=== PATIENT | female | born 1945 | race Caucasian/White ===

== ENCOUNTER 2019-08-13 06:35 | Inpatient (IN) | payer MEDICARE, BC ==
--- NOTE | 2019-08-12 14:49 | HPE ---
DATE OF ANTICIPATED ADMISSION: 08/13/2019 ATTENDING PHYSICIAN: Dr. Patrick Rm CHIEF COMPLAINT: Right hip pain and stiffness. HISTORY: The patient is a pleasant 74-year-old female with progressively worsening right hip pain and stiffness. She has failed to improve with conservative measures. She continues to have symptoms with weightbearing activities and activities of daily living. She has consented for an elective right total hip arthroplasty with Dr. Rm for her continued symptoms. Medical optimization was completed with Deandra Fernández, Nurse Practitioner and was reviewed at visit today. CURRENT MEDICATIONS: - vitamin D3 2000 units daily - isosorbide 30 mg daily - diltiazem extended release 180 mg daily - hydrochlorothiazide 12.5 mg daily - aspirin 81 mg daily - Tylenol 500 mg twice daily - omeprazole 20 mg daily - Lipitor 20 mg daily - Claritin 10 mg daily - halobetasol cream once daily - Nitrostat 0.4 mg tablets as needed - Aricept 5 mg daily ALLERGIES TO MEDICATIONS: METHYLPREDNISOLONE, CHLORINE PHOSPHATE, SIMVASTATIN, FELDENE and EYE APPOINTMENT, unsure which type. CHRONIC MEDICAL CONDITIONS: Gastroesophageal reflux. Hypertension. Osteoarthritis. Fatty liver. History of left lower extremity deep venous thrombosis (DVT). Coronary artery disease, status post stent placement. Hyperlipidemia. Stage II diastolic function. Chronic left-sided congestive heart failure. Colon polyps. History [place]O. Dementia. PAST SURGICAL HISTORY: Tonsillectomy. section. Carpal tunnel release. Cholecystectomy. Lipoma excision from behind her knee. Hysterectomy with bilateral salpingo-oophorectomy (BSO). Right total knee arthroplasty. Cardiac catheterization. Cardiac stent. Needle biopsy of the breast. Parotid cyst removal. PTCA with stent. Colonoscopy. FAMILY HISTORY: Noncontributory. SOCIAL HISTORY: The patient is a former smoker and quit in the . Rarely uses alcohol. The patient does live at home on her own but will have help status post surgery if needed. REVIEW OF SYSTEMS: The patient denies fevers, chills, nausea, vomiting, or diarrhea. She denies chest pain, shortness of breath, lightheadedness, dizziness, or headaches. She denies any recent upper respiratory or urinary tract infection symptoms. She does continue to have right hip pain with weightbearing activities and activities of daily living. PHYSICAL EXAMINATION: General: Well-nourished, well-developed female in no apparent distress. She is alert, oriented, and cooperative. Mood and affect are appropriate. Vital signs: Height 62 inches, weight 174.2 pounds, temperature 98 degrees, blood pressure 138/90, heart rate 78, respirations 13. Heart: Regular rate and rhythm. Lungs: Clear to auscultation bilaterally. Abdomen: Bowel sounds are present. Abdomen is soft and nontender to palpation. Musculoskeletal: Right hip exhibits no gross abnormalities. Skin is intact. She does have tenderness to palpation along the groin. She does have limited motion of the hip but does have 4+/5 strength of the right lower extremity secondary to pain and stiffness. Calf is soft, nontender to palpation with no palpable cords noted. She is neurovascularly intact distally. LABORATORY DATA: Chest x-ray: No acute disease identifiable. Right hip x-ray: Notable for end-stage degenerative changes. EKG: Sinus rhythm with low QRS voltage in precordial leads. Complete blood count: WBC is 10.1, RBCs 4.28, hemoglobin 13.2, hematocrit 38.9, platelets 307, ESR 10. Prothrombin time 12.5, INR 1.09. Comprehensive metabolic profile: Sodium 138, potassium 4.2, chloride 105, carbon dioxide 26, anion gap 7, BUN 13, creatinine 0.70, GFR 82, glucose 89, calcium 10.1, total bilirubin 0.5, AST 22, ALT 21, alkaline phosphatase 58, total protein 7, albumin 3.9. IMPRESSION: Right hip osteoarthritis with x-rays notable for end-stage degenerative changes. PLAN: The patient has consented for an elective right total hip arthroplasty with Dr. Rm for her continued symptoms. Medical optimization completed with Deandra Fernández NP. The patient has been taking her aspirin 81 mg daily. She took her last dose earlier this morning. I did discuss this with her operating surgeon, Dr. Rm, and he elects to continue with surgery. I did review pre- and postoperative instructions, to include, but not limited, need to be nothing by mouth after midnight, length of stay, importance of following primary care or refining supervisor's recommendations for stopping anticoagulants and other medications. [facility]
[2019-08-13] VITALS (7 sets, daily range): BP systolic 127–173; BP diastolic 59–88
[~2019-08-13] VITALS: Ht 157.5 cm; Wt 72.1 kg
[~2019-08-13 06:35] MED LIST: ATOR1TAB21 PO; D 1010004 PO; DILT180C78 PO; ECOT81TA5 PO; HYDR12CA PO; ISOS30TA4 PO; LIDOCAINE 1% MDV 20ML VIAL SQ PRN; LR 1,000 ML IV ONE; OMEP-172 PO; TYLENOL PM
[2019-08-13] MEDS ORDERED: ceFAZolin 2 GM/D5W 50 ML IV BAG (J0690 PER 500MG) As Ordered ONE (07:10)
[2019-08-13] MEDS ORDERED: ACETAMINOPHEN 500 MG TAB As Ordered ONE ×2 (07:10→07:11)
[2019-08-13] MEDS ORDERED: ACETAMINOPHEN 500 MG TAB PO ONE (07:30)
[2019-08-13] MEDS ORDERED: ceFAZolin SOD 2 GM in IV 1 EA IV ONE (07:30)
[2019-08-13] MEDS ORDERED: ceFAZolin 1GM INJ (J0690 PER 500MG) As Ordered ONE (07:52)
[2019-08-13] MEDS ORDERED: EPINEPHrine INJ 1 MG/ML 1ML AMP As Ordered ONE (07:53)
[2019-08-13] MEDS ORDERED: LIDOCAINE 2% INJ 100 MG/5 ML SDV (FOR ANES.) As Ordered ONE (07:54)
[2019-08-13] MEDS ORDERED: PROPOFOL 200 MG/20 ML VIAL As Ordered ONE (07:54)
[2019-08-13] MEDS ORDERED: fentaNYL 100 MCG/2 ML INJECTION (J3010) As Ordered ONE (07:55)
[2019-08-13] MEDS ORDERED: MIDAZOLAM INJ 2 MG/2 ML VIAL (J2250) As Ordered ONE (07:55)
[2019-08-13] MEDS ORDERED: ONDANSETRON 4MG/2ML VIAL (J2405) As Ordered ONE (07:55)
[2019-08-13] MEDS ORDERED: ePHEDrine SULFATE 25 MG/5 ML(5MG/ML) SYRINGE As Ordered ONE (09:28)
[2019-08-13] MEDS ORDERED: fentaNYL 100 MCG/2 ML INJECTION (J3010) IV PRN (11:00)
[2019-08-13] MEDS ORDERED: PERCOCET 5MG/325MG TAB PO PRN ×2 (11:00→16:45)
[2019-08-13] MEDS ORDERED: ONDANSETRON 4MG/2ML VIAL (J2405) IV PRN ×2 (11:00→17:45)
[2019-08-13] MEDS ORDERED: LR 1,000 ML IV SCH ×2 (11:00→11:15)
[2019-08-13] MEDS ORDERED: HYDROMORPHONE HCL 0.5 MG/ 0.5 ML SYRINGE (J1170 PER 1) IV PRN ×3 (11:00)
--- NOTE | 2019-08-13 11:03 | REP ---
Clinical: Status post arthroplasty. Technique: AP and cross-table lateral views. Findings: The patient is status post right hip replacement with normal positioning and appearance to the femoral and acetabular components. Overlying postsurgical changes appreciated. Impression: Satisfactory right hip replacement radiographs. Electronically Signed by Rah Sanchez MD 08/13/2019 10:54 A
[2019-08-13] MEDS ORDERED: FLEET ENEMA PR PRN (11:15)
[2019-08-13] MEDS ORDERED: ACETAMINOPHEN TAB 650MG DOSE (2X325MG) PO PRN (11:15)
--- NOTE | 2019-08-13 11:27 | RO ---
DATE OF PROCEDURE: 08/13/2019 PREPROCEDURE DIAGNOSIS: Right hip degenerative arthritis. POSTPROCEDURE DIAGNOSIS: Right hip degenerative arthritis. PROCEDURE: Right total hip arthroplasty using a size 52 Gription cup, 36 neutral liner, +1.5 neck with a 36 cobalt-chrome ball and a standard #6 Yates stem. Prostheses made by [employer]. SURGEON: Dr. Patrick Rm. SENSITOMETRIST: SOFIA [place] ANESTHESIA: Spinal. COMPLICATIONS: None. SPECIMENS: Femoral head. ESTIMATED BLOOD LOSS: 200 mL. DESCRIPTION OF PROCEDURE: Antibiotics were given intravenous preoperatively and a successful spinal anesthetic was induced. She was placed in the lateral decubitus position, right hip upper most. The down leg was well-padded especially the peroneal nerve. Axillary roll was utilized. [place] hip positioner was utilized. The right hip area was carefully prepped and draped in the usual sterile fashion after appropriate time-out. A longitudinal incision was made for an anterolateral approach to the hip. Bovie cautery used to coagulate crossing vessels down to the tensor fascia, which was then divided in line with the skin incision. It is noteworthy that the abductors were chronically torn away from the trochanter. We split the gluteus medius split in the anterior one-third posterior two-third junction. Carefully dissected down onto the underlying gluteus minimus and anterior hip capsule and carefully dissected the remaining abductor muscles off the proximal femur as we externally rotated and dislocated the hip anteriorly and placed the leg in the leg bag. The piriformis fossa was identified. Starter reamer was utilized, followed by the canal finding reamer and the lateralizing reamer. Then, we progressively reamed up to a size 6. Femoral neck osteotomy performed using the template. Then we broached up to a size 6. The acetabulum was exposed. A labral excision was performed 360 degrees. There was a significant amount of hyperemic synovitic tissue within the depths of the acetabulum, which was debrided away and coagulation was obtained with bovie cautery. We began sequential reaming starting at 47 and advanced up to 51. The trial 52 fit nicely. We irrigated out the acetabulum and then placed the real Gription size 52 cup using the extramedullary alignment jig to estimate our version and abduction. The cup seated nicely. Central hole eliminator placed, neutral liner placed as well and then we exposed the proximal femur once again copiously irrigated and then placed the #6 broach. We trialled with a 1.5 standard neck length with a 36 trial head and reduced the hip. She had good stability with flexion, internal rotation and extension external rotation. There was actually minimal soft tissue telescoping. Thus, I felt this was the appropriate size componentry to use. I then removed the broach. We copiously irrigated out the femoral canal then placed the real #6 stem. Dried the trunnion. Placed the femoral head, which was a 36 with 1.5 neck length and then made sure it was seated properly with the mallet and then reduced the hip. We copiously irrigated out the wound and then repaired the deep anterior capsule and gluteus minimus back anatomically with interrupted #1 PDS sutures. We then repaired her abductors back anatomically with a series of interrupted #1 PDS sutures irrigating between layers, then closed tensor fascia with two apex distal #1 PDS sutures, then a #1 running Stratafix was used to close the rest of the tensor fascia. Irrigated between layers, closed the deep subdermal tissues with interrupted #2-0 PDS sutures. The skin was closed with anya covered by an Optifoam dry sterile bulky dressing. She was then turned supine and then transferred to the recovery room in stable condition. There were no intraoperative complications. ADDENDUM Camila Rodrigues, my physician assistant operations manager, was critical to the success of this difficult operative procedure by helping with appropriate soft tissue retraction, helped to manipulate the leg, helped to reduce and dislocate the hip several times throughout the operation, helped to close the wound, prepare the patient, amongst many other tasks to allow me to perform the operation smoothly, efficiently, and safely. Addendum 08/13/2019 aml
[2019-08-13 12:59] LABS: BASO % 0.3 % (0.0-1.0); EOS # 0.2 10^3/uL (0.0-0.5); EOS % 1.4 % (0.0-3.0); HEMATOCRIT 36.9 % (36.0-47.0); HEMOGLOBIN 12.3 g/dl (12.0-15.5); LYMPH # 1.7 10^3/uL (1.5-5.0); LYMPH % 14.3 % (24.0-44.0); MEAN CORPUSCULAR HEMOGLOBIN 31.5 pg (27.0-33.0); MEAN CORPUSCULAR HGB CONC 33.3 g/dl (32.0-36.5); MEAN CORPUSCULAR VOLUME 94.6 fl (80.0-96.0); MONO # 1.1 10^3/uL (0.0-0.8); MONO % 9.1 % (0.0-5.0); NEUTROPHILS # 8.7 10^3/uL (1.5-8.5); NEUTROPHILS % 74.1 % (36.0-66.0); PLATELET COUNT, AUTOMATED 248 10^3/uL (150-450); WHITE BLOOD COUNT 11.7 10^3/uL (4.0-10.0)
[2019-08-13 13:38] LABS: ALBUMIN 3.4 GM/DL (3.2-5.2); ALT/SGPT 21 U/L (12-78); BILIRUBIN,TOTAL 0.3 MG/DL (0.2-1.0); BLOOD UREA NITROGEN 11 MG/DL (7-18); CALCIUM LEVEL 9.4 MG/DL (8.8-10.2); CARBON DIOXIDE LEVEL 29 MEQ/L (21-32); CHLORIDE LEVEL 109 MEQ/L (98-107); CREATININE FOR GFR 0.55 MG/DL (0.55-1.30); GLOMERULAR FILTRATION RATE > 60.0 (>39); GLUCOSE, FASTING 89 MG/DL (70-100); POTASSIUM SERUM 3.7 MEQ/L (3.5-5.1); SODIUM LEVEL 143 MEQ/L (136-145); TOTAL PROTEIN 6.2 GM/DL (6.4-8.2)
[2019-08-13] MEDS ORDERED: ACET25TA12 PO (14:51)
--- NOTE | 2019-08-13 16:35 | CR.PDOC ---
General Date of Consultation: Aug 13, 2019 Referring Provider: Patrick Rm Attending Physician: NAYANA BARRON MD Consultation HOSPITALIST CONSULT REASON FOR CONSULTATION/CHIEF COMPLAINT: medical management post-operatively HISTORY OF PRESENT ILLNESS: 74-yo female underwent right hip replacement earlier today for worsening arthritis. Denies recent injuries or illness. Is examined at bedside post-operatively on medical floor with aunt & uncle in room. Hospitalist was consulted for continued medical management. Patient has no current complaints besides right hip pain from recent surgery. She reports the surgery went well without complication. No fever, chills, nausea, vomiting, chest pain, shortness of breath. Tolerating diet well. Denies any n/v/abd pain, leg pain or paresthesia. Is a poor historian and does not recall her medical conditions or prior medical care. ALLERGIES: Please see below. HOME MEDICATIONS: Please see below. PAST MEDICAL HISTORY: obtained from chart, as pt is poor historian Prior DVT in LLE CAD s/p 2 stents Gastroesophageal reflux Hypertension Osteoarthritis [place]O, Hepatosteatosis Hyperlipidemia Grade II diastolic dysfunction Dementia PAST SURGICAL HISTORY: obtained from chart, as pt is poor historian Cardiac catheterization with 2 stents Right total knee arthroplasty Tonsillectomy section Carpal tunnel release Cholecystectomy. Lipoma excision from behind her knee. Hysterectomy with bilateral salpingo-oophorectomy (BSO). FAMILY HISTORY: Mother passed of kidney cancer Father passed of AR SOCIAL HISTORY: Tobacco: Smoked for 1 year from age [age]. Alcohol: Drinks wine occasionally Work: Not currently working REVIEW OF SYSTEMS: Constitutional: Denies fever, chills Eyes: Denies eye pain, vision change ENT: Denies headaches, ear pain, dysphagia Skin: Denies any rashes or lesions Pulmonary: Denies dyspnea, cough, wheezing Cardiac: Denies chest pain, palpitations, lightheadedness GI: Denies nausea, vomiting, abdominal pain MSK: Admits pain right hip. No other pains or myalgia Neurologic: Denies weakness or new numbness/tingling PHYSICAL EXAMINATION: VITAL SIGNS: Please see below. General exam: Alert and cooperative, A&Ox3, NAD Eye exam: PERRLA, EOMI ENT: Atraumatic, normocephalic, mucous membranes moist, tongue midline, no pharyngeal edema Neck: Supple Cardiac: RRR, normal S1 & S2, 2/6 systolic murmur heard best right sternal border with radiation to carotids, likely Aortic Stenosis Respiratory: CTAB, good air exchange, no wheezing, rhonchi, or rales Abdomen: normoactive bowel sounds, soft, nontender, nondistended Extremity: 2+ radial pulses, no edema or calf tenderness. Well-perfused MSK: able to move all extremities independently against gravity, no joint effusion, erythema, or edema Skin: [place], warm, dry, no visible rash or lesions. Dressing on right hip from recent surgery Neuro: normal tone, sensation intact, normal speech, no focal deficits Psych: Normal mood and affect. tangential speech LABORATORY DATA: Please see below. ASSESSMENT/PLAN: 1. S/P right hip arthroplasty: Diet, activity, anticoagulation, pain management as per orthopedic. 2. Hypertension: Controlled. Continue diltiazem, HCTZ, isosorbide mononitrate with monitoring of renal function 3. CAD S/P 2 stents: Continue Lipitor. Unclear why she is not on aspirin or beta jose. No current chest pain 4. Reflux disease: Continue home PPI 5. Chronic Grade 2 diastolic dysfunction: no signs of volume overload. Monitor 6. Hx of DVT LLE: AC as per ortho Thank you for involving us in this patient's care. Please call for any questions. Vital Signs/I&O Vital Signs Date Time Temp Pulse Resp B/P (MAP) Pulse Ox O2 Delivery O2 Flow Rate FiO2 08/13/19 15:18 18 Room Air 08/13/19 11:20 60 120/71 (87) 97 08/13/19 11:15 97.8 Laboratory Data Labs 24H Laboratory Tests 2 08/13/19 12:21: Immature Granulocyte % (Auto) 0.8, Neutrophils (%) (Auto) 74.1H, Lymphocytes (%) (Auto) 14.3L, Monocytes (%) (Auto) 9.1H, Eosinophils (%) (Auto) 1.4, Basophils (%) (Auto) 0.3, Neutrophils # (Auto) 8.7H, Lymphocytes # (Auto) 1.7, Monocytes # (Auto) 1.1H, Eosinophils # (Auto) 0.2, Basophils # (Auto) 0.0, Nucleated Red Blood Cells % (auto) 0.0, Anion Gap 5L, Glomerular Filtration Rate > 60.0, Calcium Level 9.4, Total Bilirubin 0.3, Aspartate Amino Transf (AST/SGOT) 19, Alanine Aminotransferase (ALT/SGPT) 21, Alkaline Phosphatase 55, Total Protein 6.2L, Albumin 3.4, Albumin/Globulin Ratio 1.21 CBC/BMP Laboratory Tests 08/13/19 12:21 Allergies Coded Allergies: Unclassified (Verified Allergy, Unknown, CHLORINE, 08/13/19) methylprednisolone (Verified Allergy, Unknown, 07/30/19) piroxicam (Verified Allergy, Unknown, 07/30/19) Home Medications Scheduled Acetaminophen/Diphenhydramine (Acetaminophen Pm Caplet) 1 Each Tablet, 1 TAB PO QHS, (Reported) Atorvastatin Calcium (Atorvastatin Calcium) 20 Mg Tablet, 20 MG PO QHS, (Reported) Cholecalciferol (Vitamin D3) (Vitamin D3) 1,000 Unit Capsule, 1,000 UNIT PO DAILY, (Reported) Diltiazem Hcl (Diltiazem 24Hr ER) 180 Mg Cap.er.24h, 180 MG PO DAILY, (Reported) Hydrochlorothiazide (Hydrochlorothiazide) 12.5 Mg Capsule, 12.5 MG PO DAILY, (Reported) Isosorbide Mononitrate (Isosorbide Mononitrate ER) 30 Mg Tab.er.24h, 30 MG PO DAILY, (Reported) Omeprazole (Omeprazole) 20 Mg Capsule.dr, 20 MG PO BID, (Reported) GME ATTESTATION GME ATTESTATION My faculty preceptor for this patient encounter was physically present during the encounter and was fully available. All aspects of the patient interview, examination, medical decision making process, and medical care plan development were reviewed and approved by the faculty preceptor. The faculty preceptor is aware and concurs with the plan as stated in the body of this note and will attest to such by his/her cosignature. ATTENDING NOTE I, Nayana Barron, have independently examined this patient and performed my own physical exam, as well as reviewed the documentation and edited where necessary. I have discussed in detail with the resident / student the findings and plan of treatment as documented by the resident / student and edited their note. I agree with their findings and treatment plan and have edited their documentation. I will continue to follow the patient during this hospital stay. PO EDOUARD DO Aug 13, 2019 15:30 NAYANA BARRON MD Aug 14, 2019 07:35
[2019-08-13] MEDS: ceFAZolin SOD 2 GM in IV 1 EA IV SCH (17:49)
[2019-08-13] MEDS: OMEPRAZOLE 20 MG CAP PO SCH (21:05)
[2019-08-13] MEDS: ATORVASTATIN 20 MG TAB PO SCH (21:05)
[2019-08-14] MEDS: ceFAZolin SOD 2 GM in IV 1 EA IV SCH (00:39)
[2019-08-14 02:00] VITALS: BP 112/54
[2019-08-14] MEDS: PERCOCET 5MG/325MG TAB PO PRN ×3 (05:03→14:29)
[2019-08-14 06:00] VITALS: BP 114/55
[2019-08-14 06:52] LABS: HEMATOCRIT 35.8 % (36.0-47.0); MEAN CORPUSCULAR HEMOGLOBIN 31.2 pg (27.0-33.0); MEAN CORPUSCULAR HGB CONC 33.5 g/dl (32.0-36.5); PLATELET COUNT, AUTOMATED 229 10^3/uL (150-450); RED BLOOD COUNT 3.85 10^6/uL (4.00-5.40); WHITE BLOOD COUNT 14.8 10^3/uL (4.0-10.0)
[2019-08-14 07:10] LABS: INR 1.22; PROTHROMBIN TIME 15.1 SECONDS (11.8-14.0)
[2019-08-14 07:21] LABS: BLOOD UREA NITROGEN 12 MG/DL (7-18); CALCIUM LEVEL 9.3 MG/DL (8.8-10.2); CARBON DIOXIDE LEVEL 28 MEQ/L (21-32); CHLORIDE LEVEL 104 MEQ/L (98-107); CREATININE FOR GFR 0.59 MG/DL (0.55-1.30); GLOMERULAR FILTRATION RATE > 60.0 (>39); GLUCOSE, FASTING 123 MG/DL (70-100); POTASSIUM SERUM 3.6 MEQ/L (3.5-5.1); SODIUM LEVEL 138 MEQ/L (136-145)
[2019-08-14 08:00] VITALS: BP 108/62
[2019-08-14] MEDS ORDERED: RIVAROXABAN 10 MG TAB (XARELTO) PO SCH (09:00)
[2019-08-14] MEDS: MIRALAX *UNIT DOSE* 17GM PACKET PO SCH (09:41)
[2019-08-14] MEDS: VITAMIN D 1,000 INTERNATIONAL UNITS TABLET PO SCH (09:41)
[2019-08-14] MEDS: MOM 30ML SUSPENSION UDC PO SCH (09:41)
[2019-08-14] MEDS: diltiaZEM **CD** 180 MG CAP PO SCH (09:43)
[2019-08-14] MEDS: hydroCHLOROthiazide 12.5 MG CAPSULE PO SCH (09:43)
[2019-08-14] MEDS: ISOSORBIDE MON. (IMDUR) 30 MG XR TAB PO SCH (09:44)
[2019-08-14] MEDS: SENOKOT S TAB PO SCH ×2 (09:44→21:21)
[2019-08-14] MEDS: OMEPRAZOLE 20 MG CAP PO SCH ×2 (09:44→21:21)
--- NOTE | 2019-08-14 11:05 | IPNPDOC ---
Text Note Date of Service The patient was seen on 08/14/19. NOTE HOSPITALIST PROGRESS NOTE SUBJECTIVE: doing well, no complaints. Pain under control and no events overnight. Tolerating diet well. No cp/sob/n/v/abd pain/constipation/diarrhea. No paresthesia or bleeding. Working with PT and pending placement, per reports- likely subacute rehab. PHYSICAL EXAMINATION: VITAL SIGNS: Please see below. General exam: Alert and cooperative, A&Ox3, NAD HEENT: NCAT, PERRLA, EOMI, anicteric sclera, MMM, neck supple Cardiac: RRR, normal S1 & S2, 2/6 systolic murmur heard best right sternal border with radiation to carotids, likely Aortic Stenosis Respiratory: CTAB, good air exchange, no wheezing, rhonchi, or rales Abdomen: normoactive bowel sounds, soft, nontender, nondistended Extremity: 2+ radial pulses, no edema or calf tenderness. Well-perfused MSK: strength intact, RLE ROM limited by recent surgery/pain Skin: [place], warm, dry, no visible rash or lesions. Clean, dry, intact dressing on right hip from recent surgery-no sign of infection Neuro: normal tone, sensation intact, normal speech, no focal deficits LABORATORY DATA: Please see below. ASSESSMENT/PLAN: 1. S/P right hip arthroplasty: Diet, activity, anticoagulation, pain management as per orthopedic. 2. Leukocytosis: likely reactionary post-op. Afebrile, no f/c. Clinically well. Monitor 3. Hypertension: Controlled. Continue diltiazem, HCTZ, isosorbide mononitrate. Renal function stable 4. Reflux disease: Continue home PPI 5. Chronic Grade 2 diastolic dysfunction: euvolemic, monitor 6. Hx of DVT LLE: AC as per ortho 7. CAD S/P 2 stents: Continue Lipitor. No angina VS,Fishbone, I+O VS, Fishbone, I+O Laboratory Tests 08/13/19 12:21 08/14/19 06:26 Vital Signs Date Time Temp Pulse Resp B/P (MAP) Pulse Ox O2 Delivery O2 Flow Rate FiO2 08/14/19 10:06 18 Room Air 08/14/19 09:43 70 108/62 08/14/19 08:00 97.6 98 I&O- Last 24 Hours up to 6 AM 08/14/19 06:00 Intake Total 2550 ml Output Total 1225 ml Balance 1325 ml GME ATTESTATION GME ATTESTATION My faculty preceptor for this patient encounter was physically present during the encounter and was fully available. All aspects of the patient interview, examination, medical decision making process, and medical care plan development were reviewed and approved by the faculty preceptor. The faculty preceptor is aware and concurs with the plan as stated in the body of this note and will attest to such by his/her cosignature. ATTENDING NOTE I, Nayana Avilez, have independently examined this patient and performed my own physical exam, as well as reviewed the documentation and edited where necessary. I have discussed in detail with the resident / student the findings and plan of treatment as documented by the resident / student and edited their note. I agree with their findings and treatment plan and have edited their documentation. I will continue to follow the patient during this hospital stay. PO EDOUARD DO Aug 14, 2019 11:05 NAYANA AVILEZ MD Aug 14, 2019 13:15
[2019-08-14 14:00] VITALS: BP 112/56
[2019-08-14] MEDS: RIVAROXABAN 10 MG TAB (XARELTO) PO SCH (17:35)
[2019-08-14] MEDS: ATORVASTATIN 20 MG TAB PO SCH (21:21)
[2019-08-14 22:00] VITALS: BP 100/50
[2019-08-15 06:00] VITALS: BP 144/80
[2019-08-15] MEDS ORDERED: PERC5TAB12 PO (06:02)
[2019-08-15] MEDS ORDERED: XARE10TA PO (06:02)
[2019-08-15] MEDS: PERCOCET 5MG/325MG TAB PO PRN ×2 (06:17→16:25)
[2019-08-15 06:42] LABS: HEMATOCRIT 33.3 % (36.0-47.0); HEMOGLOBIN 11.1 g/dl (12.0-15.5); MEAN CORPUSCULAR HEMOGLOBIN 31.4 pg (27.0-33.0); MEAN CORPUSCULAR HGB CONC 33.3 g/dl (32.0-36.5); MEAN CORPUSCULAR VOLUME 94.1 fl (80.0-96.0); PLATELET COUNT, AUTOMATED 218 10^3/uL (150-450); RED BLOOD COUNT 3.54 10^6/uL (4.00-5.40); WHITE BLOOD COUNT 14.4 10^3/uL (4.0-10.0)
[2019-08-15 07:09] LABS: BLOOD UREA NITROGEN 15 MG/DL (7-18); CALCIUM LEVEL 9.5 MG/DL (8.8-10.2); CARBON DIOXIDE LEVEL 29 MEQ/L (21-32); CHLORIDE LEVEL 99 MEQ/L (98-107); CREATININE FOR GFR 0.59 MG/DL (0.55-1.30); GLOMERULAR FILTRATION RATE > 60.0 (>39); GLUCOSE, FASTING 109 MG/DL (70-100); POTASSIUM SERUM 3.6 MEQ/L (3.5-5.1); SODIUM LEVEL 134 MEQ/L (136-145)
[2019-08-15] MEDS: hydroCHLOROthiazide 12.5 MG CAPSULE PO SCH (08:42)
[2019-08-15] MEDS: VITAMIN D 1,000 INTERNATIONAL UNITS TABLET PO SCH (08:42)
[2019-08-15] MEDS: OMEPRAZOLE 20 MG CAP PO SCH ×2 (08:42→20:34)
[2019-08-15] MEDS: diltiaZEM **CD** 180 MG CAP PO SCH (08:42)
[2019-08-15] MEDS: MOM 30ML SUSPENSION UDC PO SCH (08:43)
[2019-08-15] MEDS: SENOKOT S TAB PO SCH ×2 (08:43→20:34)
[2019-08-15] MEDS: MIRALAX *UNIT DOSE* 17GM PACKET PO SCH (08:43)
[2019-08-15] MEDS: ISOSORBIDE MON. (IMDUR) 30 MG XR TAB PO SCH (08:43)
[2019-08-15] MEDS: DOCUSATE SODIUM 100 MG CAP PO SCH ×3 (10:15→20:34)
[2019-08-15] MEDS: ONDANSETRON 4 MG TAB (S0181) PO PRN ×2 (10:18→16:24)
--- NOTE | 2019-08-15 10:58 | IPNPDOC ---
Text Note Date of Service The patient was seen on 08/15/19. NOTE HOSPITALIST PROGRESS NOTE SUBJECTIVE: feeling nauseous this am, no vomiting. Feels constipated, reports last BM was before her surgery, but is noted to be refusing bowel meds. No issues overnight. No f/c/abd pain/dyspnea. Working with PT and pending placement-possible ARU vs subacute. Tolerating diet well. No paresthesia or bleeding. PHYSICAL EXAMINATION: VITAL SIGNS: Please see below. General exam: Alert and cooperative, A&Ox3, NAD HEENT: NCAT, PERRLA, EOMI, anicteric sclera, MMM, neck supple Cardiac: RRR, normal S1 & S2, 2/6 systolic murmur heard best right sternal border with radiation to carotids, likely Aortic Stenosis Respiratory: CTAB, good air exchange, no wheezing, rhonchi, or rales Abdomen: normoactive bowel sounds, soft, nontender, nondistended Extremity: 2+ radial pulses, no edema or calf tenderness. Well-perfused MSK: strength intact, RLE ROM limited by recent surgery/pain Skin: [place], warm, dry, no visible rash or lesions Neuro: normal tone, sensation intact, normal speech, no focal deficits LABORATORY DATA: Please see below. ASSESSMENT/PLAN: 1. S/P right hip arthroplasty: Diet, activity, anticoagulation, pain management as per orthopedic. 2. Leukocytosis: stable ~14. Likely reactionary post-op. Afebrile, no f/c. Clinically well. Monitor 3. Constipation: bowel regimen on board. Pt refusing most of them. Encourage compliance and mobility 4. Reflux disease: Continue home PPI 5. Chronic Grade 2 diastolic CHF: euvolemic, monitor 6. Hx of DVT LLE: AC as per ortho 7. CAD S/P 2 stents: Continue Lipitor. No angina 8. Hypertension: Controlled. Continue diltiazem, HCTZ, isosorbide mononitrate. Renal function stable VS,Fishbone, I+O VS, Fishbone, I+O Laboratory Tests 08/15/19 06:11 Vital Signs Date Time Temp Pulse Resp B/P (MAP) Pulse Ox O2 Delivery O2 Flow Rate FiO2 08/15/19 08:43 144/80 08/15/19 08:42 79 08/15/19 06:47 18 Room Air 08/15/19 06:00 97.6 94 I&O- Last 24 Hours up to 6 AM 08/15/19 06:00 Intake Total 1910 ml Output Total 0 ml Balance 1910 ml GME ATTESTATION GME ATTESTATION My faculty preceptor for this patient encounter was physically present during the encounter and was fully available. All aspects of the patient interview, examination, medical decision making process, and medical care plan development were reviewed and approved by the faculty preceptor. The faculty preceptor is aware and concurs with the plan as stated in the body of this note and will atte st to such by his/her cosignature. ATTENDING NOTE I, Nayana Avilez, have independently examined this patient and performed my own physical exam, as well as reviewed the documentation and edited where necessary. I have discussed in detail with the resident / student the findings and plan of treatment as documented by the resident / student and edited their note. I agree with their findings and treatment plan and have edited their documentation. I will continue to follow the patient during this hospital stay. PO EDOUARD DO Aug 15, 2019 10:58 NAYANA AVILEZ MD Aug 15, 2019 15:03
[2019-08-15 14:00] VITALS: BP 116/57
[2019-08-15] MEDS: RIVAROXABAN 10 MG TAB (XARELTO) PO SCH (16:24)
[2019-08-15] MEDS ORDERED: MORPHINE 15 MG SA TAB PO ONE (17:00)
[2019-08-15] MEDS: ATORVASTATIN 20 MG TAB PO SCH (20:34)
[2019-08-15 22:00] VITALS: BP 110/55
[2019-08-16 06:00] VITALS: BP 131/70
[2019-08-16] MEDS: VITAMIN D 1,000 INTERNATIONAL UNITS TABLET PO SCH (09:33)
[2019-08-16] MEDS: OMEPRAZOLE 20 MG CAP PO SCH ×2 (09:33→21:38)
[2019-08-16] MEDS: ONDANSETRON 4 MG TAB (S0181) PO PRN (09:33)
[2019-08-16] MEDS: SENOKOT S TAB PO SCH ×2 (09:33→21:38)
[2019-08-16] MEDS: DOCUSATE SODIUM 100 MG CAP PO SCH ×3 (09:33→21:38)
[2019-08-16] MEDS: MIRALAX *UNIT DOSE* 17GM PACKET PO SCH (09:34)
[2019-08-16] MEDS: diltiaZEM **CD** 180 MG CAP PO SCH (09:34)
[2019-08-16] MEDS: ISOSORBIDE MON. (IMDUR) 30 MG XR TAB PO SCH (09:34)
[2019-08-16] MEDS: hydroCHLOROthiazide 12.5 MG CAPSULE PO SCH (09:34)
[2019-08-16] MEDS: MOM 30ML SUSPENSION UDC PO SCH (09:34)
[2019-08-16] MEDS: PERCOCET 5MG/325MG TAB PO PRN ×3 (09:35→21:53)
--- NOTE | 2019-08-16 11:37 | IPNPDOC ---
Text Note Date of Service The patient was seen on 08/16/19. NOTE HOSPITALIST PROGRESS NOTE SUBJECTIVE: Doing well today, no complaints. Working with PT and awaiting rehab- subacute vs acute. NO f/c/n/v/abd pain/cp/sob. PHYSICAL EXAMINATION: VITAL SIGNS: Please see below. General exam: Alert and cooperative, A&Ox3, NAD, pleasantly confused HEENT: NCAT, PERRLA, EOMI, anicteric sclera, MMM, neck supple Cardiac: RRR, normal S1 & S2, 2/6 systolic murmur heard best right sternal border with radiation to carotids, likely Aortic Stenosis Respiratory: CTAB, good air exchange, no wheezing, rhonchi, or rales Abdomen: normoactive bowel sounds, soft, nontender, nondistended Extremity: 2+ radial pulses, no edema or calf tenderness. Well-perfused MSK: strength intact, RLE ROM limited by recent surgery/pain Skin: [place], warm, dry, no visible rash or lesions. Right hip with dry intact dressing without signs of infection Neuro: normal tone, sensation intact, normal speech, no focal deficits LABORATORY DATA: Please see below. ASSESSMENT/PLAN: 1. S/P right hip arthroplasty 08/13: Diet, activity, anticoagulation, pain management as per orthopedic. 2. Leukocytosis: stable ~14. No signs of infection. No f/c, otherwise doing well. Monitor 3. Constipation: bowel regimen on board. Encourage compliance and mobility to prevent ileus 4. Reflux disease: Continue home PPI 5. Chronic Grade 2 diastolic CHF: euvolemic, monitor 6. Hx of DVT LLE: AC as per ortho 7. CAD S/P 2 stents: Continue Lipitor. No angina 8. Hypertension: Controlled. Continue diltiazem, HCTZ, isosorbide mononitrate. Renal function stable Doing well from medical standpoint. Continue PT and rehab. DC as per Ortho. VS,Fishbone, I+O VS, Fishbone, I+O Vital Signs Date Time Temp Pulse Resp B/P (MAP) Pulse Ox O2 Delivery O2 Flow Rate FiO2 08/16/19 10:05 18 Room Air 08/16/19 09:34 131/70 08/16/19 09:34 95 08/16/19 06:00 99.7 95 I&O- Last 24 Hours up to 6 AM 08/16/19 06:00 Intake Total 870 ml Output Total 1400 ml Balance -530 ml GME ATTESTATION GME ATTESTATION My faculty preceptor for this patient encounter was physically present during the encounter and was fully available. All aspects of the patient interview, examination, medical decision making process, and medical care plan development were reviewed and approved by the faculty preceptor. The faculty preceptor is aware and concurs with the plan as stated in the body of this note and will attest to such by his/her cosignature. ATTENDING NOTE I, Nayana Avilez, have independently examined this patient and performed my own physical exam, as well as reviewed the documentation and edited where necessary. I have discussed in detail with the resident / student the findings and plan of treatment as documented by the resident / student and edited their note. I agree with their findings and treatment plan and have edited their documentation. I will continue to follow the patient during this hospital stay. PO EDOUARD DO Aug 16, 2019 11:37 NAYANA AVILEZ MD Aug 16, 2019 15:31
[2019-08-16 12:15] LABS: HEMATOCRIT 38.4 % (36.0-47.0); HEMOGLOBIN 12.1 g/dl (12.0-15.5); MEAN CORPUSCULAR HGB CONC 31.5 g/dl (32.0-36.5); MEAN CORPUSCULAR VOLUME 95.3 fl (80.0-96.0); PLATELET COUNT, AUTOMATED 305 10^3/uL (150-450); RED BLOOD COUNT 4.03 10^6/uL (4.00-5.40); WHITE BLOOD COUNT 16.6 10^3/uL (4.0-10.0)
[2019-08-16 12:36] LABS: BLOOD UREA NITROGEN 19 MG/DL (7-18); CALCIUM LEVEL 9.6 MG/DL (8.8-10.2); CARBON DIOXIDE LEVEL 27 MEQ/L (21-32); CHLORIDE LEVEL 97 MEQ/L (98-107); CREATININE FOR GFR 0.72 MG/DL (0.55-1.30); GLOMERULAR FILTRATION RATE > 60.0 (>39); GLUCOSE, FASTING 101 MG/DL (70-100); POTASSIUM SERUM 3.6 MEQ/L (3.5-5.1); SODIUM LEVEL 134 MEQ/L (136-145)
[2019-08-16] MEDS: RIVAROXABAN 10 MG TAB (XARELTO) PO SCH (17:10)
[2019-08-16] MEDS: ATORVASTATIN 20 MG TAB PO SCH (21:38)
[2019-08-16 22:00] VITALS: BP 118/63
[2019-08-17] MEDS: PERCOCET 5MG/325MG TAB PO PRN ×3 (04:50→21:54)
[2019-08-17 06:00] VITALS: BP 117/64
[2019-08-17 06:35] LABS: HEMATOCRIT 36.8 % (36.0-47.0); HEMOGLOBIN 11.6 g/dl (12.0-15.5); MEAN CORPUSCULAR HEMOGLOBIN 30.2 pg (27.0-33.0); MEAN CORPUSCULAR HGB CONC 31.5 g/dl (32.0-36.5); MEAN CORPUSCULAR VOLUME 95.8 fl (80.0-96.0); PLATELET COUNT, AUTOMATED 271 10^3/uL (150-450); RED BLOOD COUNT 3.84 10^6/uL (4.00-5.40); WHITE BLOOD COUNT 11.4 10^3/uL (4.0-10.0)
[2019-08-17 07:05] LABS: BLOOD UREA NITROGEN 19 MG/DL (7-18); CALCIUM LEVEL 9.5 MG/DL (8.8-10.2); CARBON DIOXIDE LEVEL 32 MEQ/L (21-32); CHLORIDE LEVEL 101 MEQ/L (98-107); CREATININE FOR GFR 0.55 MG/DL (0.55-1.30); GLOMERULAR FILTRATION RATE > 60.0 (>39); GLUCOSE, FASTING 102 MG/DL (70-100); POTASSIUM SERUM 3.4 MEQ/L (3.5-5.1); SODIUM LEVEL 138 MEQ/L (136-145)
[2019-08-17] MEDS ORDERED: POTASSIUM CHLORIDE 10 MEQ SR TABLET PO ONE (07:15)
[2019-08-17] MEDS: MIRALAX *UNIT DOSE* 17GM PACKET PO SCH (09:00)
[2019-08-17] MEDS: MOM 30ML SUSPENSION UDC PO SCH (09:43)
[2019-08-17] MEDS: hydroCHLOROthiazide 12.5 MG CAPSULE PO SCH (09:44)
[2019-08-17] MEDS: OMEPRAZOLE 20 MG CAP PO SCH ×2 (09:44→21:54)
[2019-08-17] MEDS: ISOSORBIDE MON. (IMDUR) 30 MG XR TAB PO SCH (09:44)
[2019-08-17] MEDS: DOCUSATE SODIUM 100 MG CAP PO SCH ×3 (09:44→21:54)
[2019-08-17] MEDS: SENOKOT S TAB PO SCH ×2 (09:44→21:54)
[2019-08-17] MEDS: diltiaZEM **CD** 180 MG CAP PO SCH (09:45)
[2019-08-17] MEDS: VITAMIN D 1,000 INTERNATIONAL UNITS TABLET PO SCH (09:45)
--- NOTE | 2019-08-17 10:37 | IPNPDOC ---
Text Note Date of Service The patient was seen on 08/17/19. NOTE Subjective: Patient was seen and examined at the bedside. Trend. Patient reports that she has been working physical therapy. She denies any chest pain, short of breath or palpitations. Denies nausea, vomiting, abdominal pain, has had a bowel movement yesterday. Denies any urinary discomfort. Objective: Vitals (See below) General: Lying in bed, no acute distress, comfortable, Awake / Alert HEENT: NC, AT CVS: RRR, +S1S2 Lungs: Fair air entry b/l, -w/r/r Abdomen: Soft, ND, NT Extremities: - Edema, - Calf tenderness, R hip with dressing intact Assessment and plan: Elective right hip arthroplasty (08/13/2019) - Pain control and regulation and physical therapy at the direction of orthopedic surgery Leukocytosis - likely 2/2 reactive etiology - Currently has no evidence of infection - Remains hemodynamically stable and afebrile - No indication for antibiotics at this time CAD s/p stent x2 - c/w Atorvastatin Hx of LLE DVT HTN - BP remains well controlled - c/w Diltiazem, Isosorbide mononitrate, HCTZ Constipation - c/w bowel regimen as ordered Vitamin D deficiency - c/w supplementation GERD - c/w Omeprazole DVT prophylaxis - c/w full anticoagulation as per orthopedic surgery Disposition: - Patient will likely go to [facility] for continued rehabilitation tomorrow VS,[place]ist[place], I+O VS, Alistair, I+O Laboratory Tests 08/16/19 11:49 08/17/19 06:18 Vital Signs Date Time Temp Pulse Resp B/P (MAP) Pulse Ox O2 Delivery O2 Flow Rate FiO2 08/17/19 09:45 77 117/64 08/17/19 06:00 98.7 18 95 Room Air I&O- Last 24 Hours up to 6 AM 08/17/19 06:00 Intake Total 1020 ml Output Total 400 ml Balance 620 ml SERGIO AVILEZ MD Aug 17, 2019 10:37
[2019-08-17 14:00] VITALS: BP 121/64
[2019-08-17] MEDS: RIVAROXABAN 10 MG TAB (XARELTO) PO SCH (18:42)
[2019-08-17] MEDS: ATORVASTATIN 20 MG TAB PO SCH (21:54)
[2019-08-18 06:00] VITALS: BP 120/68
[2019-08-18] MEDS ORDERED: CALCIUM CARBONATE 500 MG CHEW U/D PO PRN (06:15)
[2019-08-18 06:45] LABS: HEMATOCRIT 36.4 % (36.0-47.0); HEMOGLOBIN 11.6 g/dl (12.0-15.5); MEAN CORPUSCULAR HEMOGLOBIN 30.5 pg (27.0-33.0); MEAN CORPUSCULAR HGB CONC 31.9 g/dl (32.0-36.5); MEAN CORPUSCULAR VOLUME 95.8 fl (80.0-96.0); PLATELET COUNT, AUTOMATED 323 10^3/uL (150-450); WHITE BLOOD COUNT 10.9 10^3/uL (4.0-10.0)
[2019-08-18 07:06] LABS: BLOOD UREA NITROGEN 20 MG/DL (7-18); CALCIUM LEVEL 9.9 MG/DL (8.8-10.2); CARBON DIOXIDE LEVEL 33 MEQ/L (21-32); CHLORIDE LEVEL 101 MEQ/L (98-107); CREATININE FOR GFR 0.52 MG/DL (0.55-1.30); GLOMERULAR FILTRATION RATE > 60.0 (>39); GLUCOSE, FASTING 106 MG/DL (70-100); POTASSIUM SERUM 3.9 MEQ/L (3.5-5.1); SODIUM LEVEL 137 MEQ/L (136-145)
[2019-08-18] MEDS: MIRALAX *UNIT DOSE* 17GM PACKET PO SCH (09:15)
[2019-08-18] MEDS: SENOKOT S TAB PO SCH (09:15)
[2019-08-18] MEDS: MOM 30ML SUSPENSION UDC PO SCH (09:15)
[2019-08-18] MEDS: ISOSORBIDE MON. (IMDUR) 30 MG XR TAB PO SCH (09:15)
[2019-08-18] MEDS: hydroCHLOROthiazide 12.5 MG CAPSULE PO SCH (09:15)
[2019-08-18] MEDS: DOCUSATE SODIUM 100 MG CAP PO SCH (09:15)
[2019-08-18] MEDS: OMEPRAZOLE 20 MG CAP PO SCH (09:15)
[2019-08-18] MEDS: VITAMIN D 1,000 INTERNATIONAL UNITS TABLET PO SCH (09:15)
[2019-08-18 09:16] VITALS: BP 120/68
[2019-08-18] MEDS: PERCOCET 5MG/325MG TAB PO PRN (09:16)
[2019-08-18] MEDS: diltiaZEM **CD** 180 MG CAP PO SCH (09:16)
[2019-08-18] MEDS: ONDANSETRON 4 MG TAB (S0181) PO PRN (09:18)
--- NOTE | 2019-08-18 11:32 | IPNPDOC ---
Text Note Date of Service The patient was seen on 08/18/19. NOTE HOSPITALIST PROGRESS NOTE SUBJECTIVE: Pt has no complaints today. Feeling well and looking forward to going to rehab. No issues overnight. No f/c/n/v/abd pain/bleeding. PHYSICAL EXAMINATION: VITAL SIGNS: Please see below. General exam: Alert and cooperative, A&Ox3, NAD HEENT: NCAT, PERRLA, EOMI, anicteric sclera, MMM, neck supple Cardiac: RRR, normal S1 & S2, 2/6 systolic murmur heard best right sternal border with radiation to carotids, likely Aortic Stenosis Respiratory: CTAB, good air exchange, no wheezing, rhonchi, or rales Abdomen: normoactive bowel sounds, soft, nontender, nondistended Extremity: 2+ radial pulses, no edema or calf tenderness. Well-perfused MSK: strength intact, RLE ROM limited by recent surgery/pain. Mildly tender to palpation Skin: [place], warm, dry. Right hip with dry intact dressing. No oozing or signs of infection Neuro: normal tone, sensation intact, normal speech, no focal deficits LABORATORY DATA: Please see below. ASSESSMENT/PLAN: 1. S/P right hip arthroplasty 08/13: Diet, activity, anticoagulation, pain manag ement as per orthopedic. 2. Leukocytosis: almost fully resolved. Likely reactionary to surgery. Pt has been afebrile and clinically doing well 3. Constipation: resolved. Pt had 1 bm yesterday. Continue bowel regimen and mobility to prevent ileus 4. Reflux disease: Continue home PPI 5. Chronic Grade 2 diastolic CHF: euvolemic, monitor 6. Hx of DVT LLE: AC as per ortho 7. CAD S/P 2 stents: Continue Lipitor. No angina 8. Hypertension: Controlled. Continue diltiazem, HCTZ, isosorbide mononitrate. Renal function stable 9. Hypokalemia: resolved with supplement Doing well from medical standpoint. Pt is scheduled to go to [facility] for continued rehab today. VS,Fishbone, I+O VS, Fishbone, I+O Laboratory Tests 08/18/19 06:04 Vital Signs Date Time Temp Pulse Resp B/P (MAP) Pulse Ox O2 Delivery O2 Flow Rate FiO2 08/18/19 09:46 18 08/18/19 09:16 75 120/68 08/18/19 06:00 98.6 94 Room Air I&O- Last 24 Hours up to 6 AM 08/18/19 06:00 Intake Total 1280 ml Output Total 0 ml Balance 1280 ml GME ATTESTATION GME ATTESTATION My faculty preceptor for this patient encounter was physically present during the encounter and was fully available. All aspects of the patient interview, examination, medical decision making process, and medical care plan development were reviewed and approved by the faculty preceptor. The faculty preceptor is aware and concurs with the plan as stated in the body of this note and will attest to such by his/her cosignature. ATTENDING NOTE I, Nayana Avilez, have independently examined this patient and performed my own physical exam, as well as reviewed the documentation and edited where necessary. I have discussed in detail with the resident / student the findings and plan of treatment as documented by the resident / student and edited their note. I agree with their findings and treatment plan and have edited their documentation. I will continue to follow the patient during this hospital stay. PO EDOUARD DO Aug 18, 2019 11:32 NAYANA AVILEZ MD Aug 18, 2019 16:49
== END 2019-08-18 11:10 | DRG 470 ==
LOC: M OR 06:35 → M MS5PR 11:40
PROVIDERS: ADMIT Orthopaedic Surgery; ATTEND Orthopaedic Surgery
PROC: 0SR902Z Replacement of Right Hip Joint with Metal on Polyethylene Synthetic Substitute, Open Approach (ICD-10-PCS; principal; 2019-08-13 08:30)
DX: M16.11 Unilateral primary osteoarthritis, right hip (principal); I50.32 Chronic diastolic (congestive) heart failure; K21.9 Gastro-esophageal reflux disease without esophagitis; I11.0 Hypertensive heart disease with heart failure; I25.10 Atherosclerotic heart disease of native coronary artery without angina pectoris; E87.6 Hypokalemia; E78.5 Hyperlipidemia, unspecified; K59.00 Constipation, unspecified; F03.90 Unspecified dementia, unspecified severity, without behavioral disturbance, psychotic disturbance, mood disturbance, and anxiety; K75.81 Nonalcoholic steatohepatitis (NASH); Z90.49 Acquired absence of other specified parts of digestive tract; Z96.651 Presence of right artificial knee joint; Z95.5 Presence of coronary angioplasty implant and graft; Z87.891 Personal history of nicotine dependence; Z79.82 Long term (current) use of aspirin; Z79.899 Other long term (current) drug therapy; Z86.718 Personal history of other venous thrombosis and embolism